=== PATIENT | female | born 1990 | race Caucasian/White ===

== ENCOUNTER 2019-03-06 16:37 | Emergency (ER) | payer MEDICAID ==
[~2019-03-06] VITALS: Ht 157.5 cm; Wt 68.2 kg
[2019-03-06 16:50] VITALS: Ht 157.5 cm; Wt 68.2 kg
[2019-03-06] MEDS ORDERED: TAMIFLU75 MG PO (17:51)
[2019-03-06 18:22] VITALS: BP 118/73
== END 2019-03-06 18:22 | disposition home or self-care (01) ==
LOC: D.ER 16:37
DX: R05 Cough (principal); R50.9 Fever, unspecified; R52 Pain, unspecified; R00.0 Tachycardia, unspecified

== ENCOUNTER → 2020-07-16 | Emergency (ER) | payer OTHER ==
[~2020-07-16] VITALS: Ht 157.5 cm; Wt 72.7 kg
[~2020-07-16] MED LIST: DICLOFENAC SODI50 MG PO; MEDROL DOSE PACK4 MG PO; TAMIFLU75 MG PO; ZANAFLEX4 MG PO
[2020-07-16 17:17] VITALS: Ht 157.5 cm; Wt 72.7 kg
[2020-07-16 17:31] VITALS: BP 143/76
[2020-07-16 18:20] LABS: BACTERIA FEW HPF (NONE SEEN); BILIRUBIN NEGATIVE (NEGATIVE); KETONE NEGATIVE (NEGATIVE); NITRITE NEGATIVE (NEGATIVE); SQUAMOUS EPITHELIAL NONE SEEN HPF (0-4); UROBILINOGEN NORMAL mg/dL (< 2); WHITE CELLS - URINE NONE SEEN HPF (0-4)
== END | disposition home or self-care (01) ==
LOC: D.ER 17:09
PROVIDERS: Family Medicine
DX: R07.89 Other chest pain (principal); M54.6 Pain in thoracic spine